=== PATIENT | male | born 1960 | race Two or more races ===

== ENCOUNTER → 2019-05-11 | Outpatient (CLI) | payer OTHER ==
[~2019-05-11] MED LIST: IOHEXOL 300 MG/ML 100ML BOTTLE IJ ONE; OMNIPAQUE ORAL SOLN 500ml 12mg/ml PO ONE
[2019-05-11 09:20] LABS: BUN/Creatinine Ratio 9.6; Calcium 8.8 mg/dL (8.5-10.1); Potassium 4.6 mmol/L (3.5-5.1)
== END | disposition home or self-care (01) ==
LOC: CT 07:22
DX: R10.9 Unspecified abdominal pain (principal); I70.0 Atherosclerosis of aorta; M41.86 Other forms of scoliosis, lumbar region; J98.11 Atelectasis
CPT/HCPCS: 36415; 74177; 80048; Q9967

== ENCOUNTER 2020-06-29 18:11 | Emergency (ER) | payer OTHER ==
[~2020-06-29] VITALS: Ht 170.2 cm; Wt 69.9 kg
[2020-06-29 18:36] VITALS: BP 127/67
== END 2020-06-29 19:03 | disposition left against medical advice (07) ==
LOC: ER 18:11 → EDBD 18:11 → EDUNIT# 18:11 → ER 19:02
DX: E16.2 Hypoglycemia, unspecified (principal); Z53.21 Procedure and treatment not carried out due to patient leaving prior to being seen by health care provider
CPT/HCPCS: 96361; 96374